=== PATIENT | female | born 1995 | race African-American/Black ===

== ENCOUNTER 2020-11-30 12:58 | Emergency (ER) | payer OTHER ==
[~2020-11-30] VITALS: Ht 160 cm; Wt 70.3 kg
--- NOTE | 2020-11-30 12:59 | NUR ---
PT BIB RESCUE CO SOB, PT WAS GIVEN ALBUTEROL TX BY PARAMEDICS EN [place]RIANE, [id number], PARAMEDICS STATE THAT PRIOR TO BREATHING TX, PT HR WAS IN 90S. PTSOME HOW RESTLESS, PT NOT A GOOD HISTORIAN REGARDING MEDICAL BACK GROUND AT THIS TIME.
[2020-11-30 13:15] LABS: MEAN CORPUSCULAR VOLUME 83.2 fL (75.5-95.3); PLATELET COUNT (AUTO) 340 K/uL (179-408)
[2020-11-30] MEDS ORDERED: diphenhydrAMINE 50 MG/1 ML VIAL IV ONE (13:15)
[2020-11-30] MEDS ORDERED: methylPREDNISolone SOD SUCC 125 MG/2 ML VIAL IV ONE (13:15)
[2020-11-30] MEDS ORDERED: ALBUTEROL SULFATE 2.5 MG/3 ML NEBU NEB ONE ×2 (13:15→21:45)
[2020-11-30] MEDS ORDERED: methylPREDNISolone SOD SUCC 125 MG/2 ML VIAL ONE (13:18)
[2020-11-30] MEDS ORDERED: diphenhydrAMINE 50 MG/1 ML VIAL ONE (13:18)
[2020-11-30] MEDS ORDERED: ALBUTEROL SULFATE 2.5 MG/3 ML NEBU ONE ×2 (13:19→21:51)
[2020-11-30 13:29] LABS: CREATININE 1.1 mg/dL (0.6-1.3); TOTAL PROTEIN, SERUM 7.8 g/dL (6.4-8.2)
[2020-11-30 13:36] LABS: POTASSIUM 2.8 mmol/L (3.5-5.1)
[2020-11-30] MEDS ORDERED: POTASSIUM CHLORIDE 50 ML IV SCH (13:45)
[2020-11-30] MEDS ORDERED: POTASSIUM BICARBONATE/CIT AC 25 MEQ TABLET.EFF PO ONE (13:45)
[2020-11-30] MEDS ORDERED: POTASSIUM CHLORIDE 50 ML ONE (13:49)
[2020-11-30] MEDS ORDERED: POTASSIUM BICARBONATE/CIT AC 25 MEQ TABLET.EFF ONE (13:49)
[2020-11-30] MEDS ORDERED: IV NORMAL SALINE 250 ML IV ONE (14:42)
[2020-11-30] MEDS ORDERED: IOHEXOL 300MG/ML 100 ML INFUS..BTL ONE (14:42)
[2020-11-30] MEDS ORDERED: SWABABLE VALVE TRANSFER SET EA MC ONE (14:42)
[2020-11-30] MEDS ORDERED: LORAZEPAM 2 MG/1 ML VIAL IV ONE (14:45)
--- NOTE | 2020-11-30 15:40 | NUR ---
requesting medical records from [facility], pt signed auth for release of informaion, form faxed to [phone] as requested by [facility] medical records office ([phone]).
[2020-11-30] MEDS ORDERED: ENOXAPARIN SODIUM 30 MG/0.3 ML DISP.SYRIN SUBCUT ONE (16:00)
[2020-11-30] MEDS ORDERED: ENOXAPARIN SODIUM 30 MG/0.3 ML DISP.SYRIN ONE (16:30)
--- NOTE | 2020-11-30 16:40 | NUR ---
NOTE FOR PHARMACY: kcl iv infusion completed at 1600.
--- NOTE | 2020-11-30 16:40 | NUR ---
PT RESTING, NO SIGN OF DISTRESS,
[2020-11-30] MEDS: levoFLOXacin 750 MG/D5W 150 ML PIGGYBACK IV ONE ×2 (16:54→17:36)
[2020-11-30] MEDS ORDERED: levoFLOXacin 750MG/D5W 150 ML IV ONE (16:59)
[2020-11-30] MEDS ORDERED: IV NORMAL SALINE 1000 ML BAG IV ONE (17:15)
--- NOTE | 2020-11-30 18:40 | NUR ---
DR. MULLIGAN TALKED TO DR. PRIMO LAYTON, , MULTIPLE TIMES.
--- NOTE | 2020-11-30 20:53 | NUR ---
Dr. Decker speaking with Dr. Polo of [facility].
--- NOTE | 2020-11-30 22:00 | NUR ---
Patient does not wish to proceed with medical care recommended by Dr. Decker. Patient given information related to possible complications, up to and including , which could occur as a result of leaving the hospital at this time. Patient verbalizes understanding of risks involved due to leaving against medical advice. Patient has signed AMA form.
[2020-11-30 22:12] VITALS: BP 118/74
== END 2020-11-30 22:12 | disposition left against medical advice (07) ==
LOC: ER 12:58
DX: O99.53 Diseases of the respiratory system complicating the puerperium (principal); J18.9 Pneumonia, unspecified organism; E87.6 Hypokalemia; O99.13 Other diseases of the blood and blood-forming organs and certain disorders involving the immune mechanism complicating the puerperium; O01.9 Hydatidiform mole, unspecified; O08.9 Unspecified complication following an ectopic and molar pregnancy; J18.8 Other pneumonia, unspecified organism; Z20.822 Contact with and (suspected) exposure to COVID-19
CPT/HCPCS: 36415; 71045; 71275; 80053; 83735; 84443; 84702; 85025; 85379; 87040 ×2; 87426; 94640 ×2; 96365; 96366; 96367; 96372; 96375; 99291; J1200; J1650; J1956; J2930; J3480; Q9967; J7030; J7050